=== PATIENT | male | born 1940 | race Caucasian/White ===

== ENCOUNTER 2019-01-22 11:44 | Inpatient (IN) | payer MEDICARE ==
--- NOTE | 2019-01-22 12:00 | ED ---
Shortness of Breath - HPI Summary HPI Summary: The patient is a 78 y/o M presenting to [facility] accompanied by family with a chief complaint of gradually worsening shortness of breath, cough, and chest congestion, over the last two days and new onset fever of 101F this morning. He reports three days ago, he went to [place] for a transesophageal echocardiography because he was scheduled for an ablation the next day secondary to hx of atrial fibrillation. While the test was normal, lab and chest x-ray results taken that day revealed fluid on the lungs and an elevated INR likely secondary to CHF exacerbation, so the ablation was canceled. He was given 45mg Lasix IV there, and was advised to continue taking 20mg Lasix daily. When he returned home, his symptoms continued to worsen with development of fatigue, generalized weakness, productive cough with thick brown phlegm, increased shortness of breath with pulse ox reading in the high 80s% range, chest congestion, headache, and fever. He denies any edema or chest pain. He also notes that hes been experiencing an irregular heartbeat, likely due to afib, which he has been experiencing more frequently since he had pneumonia in July 2018. He had seen a PA in his primarys office yesterday, but they were not inclined to begin a course of antibiotics yet. Currently, he rates his symptoms 6/10 in severity. 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 Former smoker, rare EtOH, no substance use. Medications reviewed ( Coumadin, Tikosyn, Metoprolol). Allergies noted. - History of Current Complaint Chief Complaint: EDGeneral Time Seen by Provider: 01/22/19 11:46 Hx Obtained From: Patient Onset/Duration: Gradual Onset, Lasting Days - two, Still Present Current Severity: Moderate Dyspnea At: Rest Aggravating Factors: Nothing - possible CHF exacerbation Alleviating Factors: Nothing Associated Signs & Symptoms: Cough (Nonproductive) - with thick, brown phlegm, Fever - 101F - Allergy/Home Medications Allergies/Adverse Reactions: Allergies Allergy/AdvReac Type Severity Reaction Status Date / Time Penicillins Allergy Rash Verified 01/22/19 11:48 Home Medications: Home Medications Furosemide TAB* [Lasix TAB*] 20 mg PO DAILY 01/22/19 [History Confirmed 01/22/19 ] Metoprolol Succinate XL TAB* [Toprol XL TAB*] 50 mg PO DAILY 01/22/19 [History Confirmed 01/22/19] Mirtazapine TAB* [Remeron TAB*] 15 mg PO BEDTIME 01/22/19 [History Confirmed 09/05] Omeprazole 40 mg PO QAM 01/22/19 [History Confirmed 01/22/19] Zolpidem Tartrate [Ambien Cr] 12.5 mg PO BEDTIME PRN 01/22/19 [History Confirmed 01/22/19] PMH/Surg Hx/FS Hx/Imm Hx Endocrine/Hematology History: Denies: Hx Diabetes, Hx Anemia Cardiovascular History: Reports: Hx Atrial Fibrillation, Hx Congestive Heart Failure, Hx Coronary Artery Disease, Hx Hypercholesterolemia, Hx Hypertension, Hx Valvular Heart Disease - valve replacement, Other Cardiovascular Problems/ Disorders - 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 Denies: Hx Angina, Hx Myocardial Infarction, Hx Pacemaker/ICD Respiratory History: Reports: Hx Asthma - A CHILD, Hx Lung Cancer, Other Respiratory Problems/Disorders - RLL lobectomy Denies: Hx Chronic Obstructive Pulmonary Disease (COPD) GI History: Reports: Hx Gall Bladder Disease, Hx Gastroesophageal Reflux Disease Denies: Hx Jaundice History: Reports: Hx Benign Prostatic Hyperplasia, Hx Kidney Stones - JULY 2011, Other Problems/Disorders - urethral stricture Denies: Hx Chronic Renal Failure, Hx Renal Disease - kidney stones Musculoskeletal History: Reports: Hx Arthritis - GENERALIZED Sensory History: Reports: Hx Cataracts, Hx Contacts or Glasses Denies: Hx Hearing Aid Opthamlomology History: Reports: Hx Cataracts, Hx Contacts or Glasses Neurological History: Reports: Hx Transient Ischemic Attacks (TIA) Denies: Hx Headaches Psychiatric History: Reports: Other Psychiatric Issues/Disorders - ETOH Denies: Hx Panic Disorder - Cancer History Cancer Type, Location and Year: PROSTATE CANCER, lung cancer Hx Radiation Therapy: Yes - Surgical History Surgical History: Yes Surgery Procedure, Year, and Place: 1997 SEED IMPLANT FOR PROSTATE,. 1997 RT LOWER LOBECTOMY,. [address] [facility] MODEL 25A [address] [employer] FOR UP TO 3T. 2009 & 2011 KIDNEY STONES X 2 [facility]. 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 Negative: Chest Pain Positive: Shortness Of Breath, Cough - productive with thick, brown phlegm, Other - chest congestion Negative: Edema Positive: Headache, Weakness - generalized All Other Systems Reviewed And Are Negative: Yes Physical Exam - Summary Physical Exam Summary: VITAL SIGNS: Reviewed. GENERAL: Patient is a well-developed and nourished elderly male who is lying comfortable in the stretcher. He seems to be fatigued. Patient is not in any acute respiratory distress. HEAD AND FACE: No signs of trauma. No ecchymosis, hematomas or skull depressions. No sinus tenderness. EYES: PERRLA, EOMI x 2, No injected conjunctiva, no nystagmus. EARS: Hearing grossly intact. Ear canals and tympanic membranes are within normal limits. MOUTH: Oropharynx within normal limits. NECK: Supple, trachea is midline, no adenopathy, no JVD, no carotid bruit, no c- spine tenderness, neck with full ROM. CHEST: Symmetric, no tenderness at palpation. LUNGS: Able to speak in full sentences, however he seems to be short of breath. Wheezing, decreased breath sounds bilaterally, crackles in the bases of the lungs. CVS: Regular rate and rhythm, S1 and S2 present, no murmurs or gallops appreciated. ABDOMEN: Soft, non-tender. No signs of distention. No rebound, no guarding, and no masses palpated. Bowel sounds are normal. EXTREMITIES: FROM in all major joints, no edema, no cyanosis or clubbing. NEURO: Alert and oriented x 3. No acute neurological deficits. Speech is normal and follows commands. SKIN: Dry and warm. Triage Information Reviewed: Yes Vital Signs On Initial Exam: Initial Vitals Temp Pulse Resp BP Pulse Ox 101.0 F 88 24 120/70 90 01/22/19 11:45 01/22/19 11:45 01/22/19 11:45 01/22/19 11:45 01/22/19 11:45 Vital Signs Reviewed: Yes Procedures - Sedation Patient Received Moderate/Deep Sedation with Procedure: No Diagnostics - Vital Signs Vital Signs Temp Pulse Resp BP Pulse Ox 01/22/19 11:45 101.0 F 88 24 120/70 90 - Laboratory Result Diagrams: 01/22/19 12:12 01/23/19 06:55 Lab Statement: Any lab studies that have been ordered have been reviewed, and results considered in the medical decision making process. - Radiology Chest X-ray Radiology Interpretation Completed By: Radiologist Summary of Radiographic Findings: Impression: Mixed radiographic pattern both with concern for mild pulmonary vascular congestion and potential inflammatory infiltrate at the RIGHT mid to lower lung zone. ED physician has reviewed this report. - EKG 1211 Cardiac Rate: NL - 86 bpm EKG Rhythm: Sinus Rhythm EKG Comparison: No Significant Change - Similar to previous taken on 09/14/18. Summary of EKG Findings: EKG at 1211 reveals NSR at 86 bpm[address] Normal axis. No ST elevations. ED physician has reviewed and interpreted this EKG. Re-Evaluation - Re-Evaluation First Eval Re-Evaluation Time: 12:55 Change: Unchanged Comment: Patient and faimly updated on findings and plan for admission. Course/Dx - Course Assessment/Plan: Patient is a 78 y/o M hx of atrial fibrillation, CHF, endocarditis, and right lower lobectomy with chief complaint of gradually worsening shortness of breath and productive cough accompanied by headache, chest congestion, fever, and irregular heart rate over the last two days following findings of fluid on the lungs and elevated INR despite normal PATY the day prior to symptoms worsening. Denies edema or chest pain. Currently taking Lasix. Blood work without any significant abnormality except for slight anemia, glucose 110, magnesium 1.8, CRP 235, and BNP 1084. EKG impression: Normal sinus rhythm at [address] elevation. Chest x-ray IMPRESSION: Mixed radiographic pattern both with concern for mild pulmonary vascular congestion and potential inflammatory infiltrate at the RIGHT mid to lower lung zone. In the ED course, the patient was given Lasix IV for CHF exacerbation. At this point, I discussed my physical exam and findings with Dr. Guy who accepted the patient for admission. Dr. Guy ordered Rocephin IV for the pneumonia. - Diagnoses Provider Diagnoses: CHF exacerbation, Pneumonia - Physician Notifications Discussed Care of Patient With: Sheyla Guy - hospitalist Time Discussed With Above Provider: 12:57 Instructed by Provider To: Admit As Observation - I discussed the patient's case with Dr. Guy, and she accepts the patient for admission. Discharge ED - Sign-Out/Discharge Documenting (check all that apply): Patient Departure - Patient accepted for admission. - Discharge Plan Condition: Stable Disposition: ADMITTED TO [facility] - Billing Disposition and Condition Condition: STABLE Disposition: Admitted to [facility] - Attestation Statements Document Initiated by Chidie: Yes Documenting Scribe: Lotus Shelby Provider For Whom Nitin is Documenting (Include Credential): Dr. Roger Church MD Scribe Attestation: Lotus Gastelum scribed for Dr. Roger Church MD on 01/23/19 at 0903. Scribe Documentation Reviewed: Yes Provider Attestation: The documentation as recorded by the Lotus luciano accurately reflects the service I personally performed and the decisions made by me, Dr. Roger Church MD Status of Scribe Document: Viewed
[2019-01-22 12:24] LABS: ABS Lymphocytes 0.7 10^3/ul (1.0-4.8); ABS Neutrophils 7.5 10^3/ul (1.5-7.7); Hematocrit 34 % (42-52); Hemoglobin 11.9 g/dL (14.0-18.0); Lymphocyte % 7.9 %; Mean Corpuscular HGB Conc 35 g/dL (31-36); Mean Corpuscular Hemoglobin 33 pg (27-31); Mean Corpuscular Volume 96 fL (80-94); Mean Platelet Volume 9.1 fL (7.4-10.4); Platelet Count 153 10^3/uL (150-450); Red Blood Count 3.56 10^6 /uL (4.18-5.48); Red Cell Distribution Width 15 % (10-15); White Blood Count 9.3 10^3/uL (3.5-10.8)
[2019-01-22 12:42] LABS: Albumin 3.8 g/dL (3.2-5.2); Albumin/Globulin Ratio 1.1 (1-3); BUN/Creatinine Ratio 31.9 (8-20); Calcium 9.6 mg/dL (8.6-10.3); EGFR African American 128.4 (>60); EGFR Non-African American 106.1 (>60); Globulin 3.4 g/dL (2-4); Magnesium 1.8 mg/dL (1.9-2.7); Potassium 4.3 mmol/L (3.5-5.0); Total Protein 7.2 g/dL (6.4-8.9)
[2019-01-22 12:44] LABS: Troponin I 0.02 ng/mL (<0.04)
[2019-01-22] MEDS ORDERED: Furosemide IV* 10 MG/ML 2 ML VIAL (20 MG) IV ONE (12:54)
[2019-01-22 12:56] LABS: TSH (Thyroid Stimulating Horm) 0.64 mcIU/mL (0.34-5.60)
[2019-01-22 14:05] LABS: INR 4.87 (0.82-1.09)
[2019-01-22 14:09] LABS: C Reactive Protein 235.14 mg/L (<8.01)
[2019-01-22] MEDS: Azithromycin 500 mg/250 ml NS 500 MG/250 ML BAG IVPB SCH (14:19)
[2019-01-22] MEDS ORDERED: Metoprolol Tartrate IV* 1 MG/ML 5 ML VIAL IV ONE (14:47)
[2019-01-22] MEDS: HYDROcodone/ACETAMIN 5-325 MG* 1 TAB PO PRN (16:21)
[2019-01-22] MEDS: cefTRIAXone(*) 1 GM in NS 0.9% 50 ML* 50 ML IVPB SCH (16:22)
[2019-01-22 17:30] LABS: Urine Appearance Cloudy; Urine Bacteria Absent (Absent); Urine Bilirubin Negative (Negative); Urine Blood 2+ (Negative); Urine Color Yellow; Urine Glucose Negative (Negative); Urine Ketones Negative (Negative); Urine Nitrite Negative (Negative); Urine Protein Negative (Negative); Urine Red Blood Cell 3+(>10/hpf) (Absent); Urine Specific Gravity 1.016 (1.010-1.030); Urine Squamous Epithelial Cell Present (Absent); Urine Urobilinogen Negative (Negative); Urine White Blood Cell 3+(>20/hpf) (Absent)
--- NOTE | 2019-01-22 18:00 | HP ---
CC: Dr. Cortez; Dr. Tsai * HISTORY AND PHYSICAL: DATE OF ADMISSION: 01/22/19 PRIMARY CARE PROVIDER: Dr. Cortez. FACTORY FOCUS TECHNICIAN: Dr. Tsai. CHIEF COMPLAINT: Shortness of breath. HISTORY OF PRESENT ILLNESS: Mr. Santos is a 78-year-old male who states that on 01/17/19 in the afternoon he started to develop what he described as a severe cold. He felt short of breath. Thursday, he was feeling somewhat better, but still not well and drove to [place] for a planned transesophageal echocardiogram on Thursday. Thursday a.m., he underwent transesophageal echocardiogram in preparation for an AFib ablation on . morning, he developed severe cough. He had much more significant shortness of breath. His AFib ablation was canceled. Chest x-ray was obtained and he was diagnosed with pulmonary edema. He was given Lasix 45 mg IV x1 and started on Lasix 20 mg daily. afternoon, he drove home. He continued to feel unwell and today, 01/22/19 he noted that his shortness of breath and cough are worse. He states that when he coughs he frequently is bringing up thick brown sputum. He has not had any fever at home, but did have a fever of 101 in the emergency room. He does note that he had a house guest over the last weekend and the night prior to the house guest leaving he was developing a cold. He does not note any lower extremity edema. PAST MEDICAL HISTORY: 1. Atrial fibrillation. 2. Congestive heart failure. 3. Coronary artery disease. 4. History of endocarditis, approximately 5 years ago. 5. Depression. 6. Hypertension. 7. Asthma. 8. History of prostate cancer, status post radiation therapy with seeds. 9. Frequent urinary tract infections secondary to urethral strictures requiring self-catheterization once daily to prevent stricture from tightening. PAST SURGICAL HISTORY: 1. Right lower lobectomy for lung cancer. 2. Dilating cystoscopies. 3. Mechanical aortic valve replacement. 4. Bilateral cataract extractions. 5. Kidney stone surgery. MEDICATIONS: 1. Lasix 20 mg p.o. daily. 2. Metoprolol XL 50 mg p.o. q.a.m., 37.5 mg p.o. q.p.m. 3. [place] 5/325 one tab p.o. q.6 hours p.r.n. pain. 4. Flonase 1 squirt both nostrils daily. 5. Omeprazole 40 mg p.o. daily. 6. Magnesium oxide 500 mg p.o. b.i.d. 7. Potassium chloride 20 mEq p.o. b.i.d. 8. Multivitamin 1 tab p.o. daily. 9. Tikosyn 250 mcg p.o. b.i.d. 10. Coumadin 2 mg p.o. q.h.s. 11. Remeron 15 mg p.o. q.h.s. 12. Ambien CR 12.5 mg p.o. q.h.s. p.r.n. insomnia. ALLERGIES: PENICILLIN, which causes rash. FAMILY HISTORY: Mom at the age of 85, she had diabetes and heart failure. Dad at the age of 71, he had emphysema. SOCIAL HISTORY: The patient is a former smoker, he quit at the age of 32, he smoked less than 1 pack per day for approximately 10 years. He does not drink alcohol. He works as a [employer]. He is . He has 3 children. His Madie is his healthcare proxy. REVIEW OF SYSTEMS: A complete 11-system review of systems is obtained, pertinent positives and negative are as per HPI. In addition, the patient states his appetite has been poor over the last several days. He has had pain in his chest only with coughing. He has had loose stools in the last couple of days. The rest of the 11-system review of systems is negative. PHYSICAL EXAMINATION GENERAL: The patient is a well-developed elderly male, sitting up in the stretcher, in no acute distress. VITAL SIGNS: Blood pressure 128/74, pulse 88, respirations 30, temp 101 O2 sat 92% on room air. HEENT: Pupils are equal. There is evidence of prior cataract extraction. Extraocular muscles are intact. Oropharynx is clear. Oral mucosa is moist. There is no submandibular, cervical or supraclavicular adenopathy. Thyroid is not enlarged. No thyroid nodules noted. PULMONARY: Lungs are clear to auscultation bilaterally. CARDIAC: Normal S1, S2. Regular rate and rhythm. There is no lower extremity edema. ABDOMEN: Bowel sounds are present. Abdomen is soft, nontender, nondistended. MUSCULOSKELETAL: There is no cyanosis or clubbing of the digits. There is full active range of motion of all 4 extremities. NEURO: Cranial nerves II through XII are grossly intact. Sensation is intact to light touch throughout. Strength is 5/5 and symmetric to both upper and lower extremities bilaterally. PSYCH: The patient is alert. He is oriented x3. Affect appears appropriate. SKIN: Warm and dry. There are no rashes. DIAGNOSTIC STUDIES/LAB DATA: WBC 9.3, hemoglobin 11.9, hematocrit 34, platelets 153. INR 4.87. Sodium 137, potassium 4.3, chloride 101, CO2 of 28, BUN 23, creatinine 0.72, glucose 110, lactic acid 1.6, calcium 9.6, magnesium 1.8. Bilirubin 1.0, AST 32, ALT 23, alk phos 59. CPK 71, CK-MB 4. Troponin 0.02. CRP 235.14. BNP 1084. Albumin 3.8. TSH 0.64. EKG reveals normal sinus rhythm without any acute ST-T wave abnormalities. Chest x-ray reveals mixed radiographic pattern, both with concern for mild pulmonary vascular congestion and potential inflammatory infiltrate at the right mid to lower lung zone. ASSESSMENT AND PLAN: Mr. Santos is a 78-year-old male with a history of atrial fibrillation, congestive heart failure, coronary artery disease, hypertension, past right lower lobectomy for lung cancer, who presents to the emergency room with complaints of shortness of breath and is found to have likely a right- sided pneumonia. 1. Community-acquired pneumonia involving the right mid lung. At this point, my suspicion based on the patient's symptoms and history of fatigue, anorexia, cough, sputum production, and now fever is that he has a community-acquired pneumonia. The patient will be started on ceftriaxone and azithromycin. Sputum culture will be obtained as well as urine for Strep pneumoniae and Legionella antigen. I am not going to administer any IV fluid at this point given the patient's elevated BNP and possible mild pulmonary vascular congestion seen on chest x-ray. The patient will not receive any further diuretic. He did receive a dose of Lasix 20 mg IV x1 in the ER. The patient will also continue on Tikosyn 250 mcg p.o. b.i.d. 2. Atrial fibrillation. In the time that I spent in the ER with the patient, he went from sinus rhythm to atrial fibrillation. He feels more uncomfortable in atrial fibrillation. Metoprolol 5 mg IV x1 will be administered. He will otherwise continue on metoprolol succinate 50 mg daily and 37.5 mg at bedtime. His INR is supratherapeutic at 4.87 and likely will go higher with the administration of azithromycin. Because of this, I am not going to administer any Coumadin tonight. Followup INR has been ordered for tomorrow. 3. Hypertension. BP is under good control. Continue metoprolol succinate at current dose. 4. History of urethral strictures and frequent urinary tract infections. The patient will continue with straight catheterization once daily. 5. Depression. Continue Remeron 15 mg at bedtime. 6. Insomnia. Continue Ambien as needed for sleep. 7. DVT prophylaxis. According to the Adult Thrombosis Prophylaxis Risk Factor Assessment Guide, the patient has a total risk factor score of 5 making him the highest risk. He already has a supratherapeutic INR and this will be his DVT prophylaxis, his Coumadin will be restarted when his INR has trended down. 8. Code status is full. TIME SPENT: 65 minutes was spent admitting this patient. [id number]/[facility] #: [id number] FEDE
[2019-01-22] MEDS: Metoprolol Succinate XL TAB* 25 MG PO SCH (18:39)
[2019-01-22] MEDS: Zolpidem TAB* 10 MG PO PRN ×2 (21:41→23:10)
[2019-01-22] MEDS: Dofetilide CAP* 250 MCG PO SCH (21:41)
[2019-01-22] MEDS: Magnesium Oxide TAB* 400 MG PO SCH (21:42)
[2019-01-22] MEDS: Mirtazapine TAB* 15 MG PO SCH (21:42)
[2019-01-22] MEDS: Potassium Chlor TAB* 20 MEQ TAB.ER PO SCH (21:42)
[2019-01-23 07:20] LABS: BUN/Creatinine Ratio 36.2 (8-20); Calcium 8.9 mg/dL (8.6-10.3); EGFR African American 164.8 (>60); EGFR Non-African American 136.2 (>60)
[2019-01-23 07:25] LABS: INR 5.95 (0.82-1.09)
[2019-01-23] MEDS: Magnesium Oxide TAB* 400 MG PO SCH ×2 (09:46→21:20)
[2019-01-23] MEDS: Pantoprazole TAB * 40 MG TAB PO SCH (09:46)
[2019-01-23] MEDS: Dofetilide CAP* 250 MCG PO SCH ×2 (09:46→21:21)
[2019-01-23] MEDS: Furosemide TAB* 20 MG PO SCH (09:46)
[2019-01-23] MEDS: Metoprolol Succinate XL TAB* 50 MG PO SCH (09:46)
[2019-01-23] MEDS: Potassium Chlor TAB* 20 MEQ TAB.ER PO SCH ×2 (09:46→21:21)
[2019-01-23] MEDS: Vitamin THERAPEUTIC TAB PO SCH (09:46)
[2019-01-23] MEDS: cefTRIAXone(*) 1 GM in NS 0.9% 50 ML* 50 ML IVPB SCH (15:11)
[2019-01-23] MEDS: Azithromycin 500 mg/250 ml NS 500 MG/250 ML BAG IVPB SCH (16:01)
[2019-01-23] MEDS: Metoprolol Succinate XL TAB* 25 MG PO SCH (17:32)
[2019-01-23] MEDS: Calcium Carbonate CHEW TAB* 500 MG (TUMS) PO PRN (21:20)
[2019-01-23] MEDS: Mirtazapine TAB* 15 MG PO SCH (21:21)
[2019-01-24] MEDS ORDERED: Metoprolol Tartrate TAB* 25 MG PO ONE (00:37)
[2019-01-24] MEDS: Zolpidem TAB* 10 MG PO PRN ×2 (01:03→21:10)
[2019-01-24] MEDS: HYDROcodone/ACETAMIN 5-325 MG* 1 TAB PO PRN ×2 (01:07→19:17)
[2019-01-24 07:06] LABS: Hematocrit 31 % (42-52); Hemoglobin 10.7 g/dL (14.0-18.0); Mean Corpuscular HGB Conc 34 g/dL (31-36); Mean Corpuscular Hemoglobin 33 pg (27-31); Mean Corpuscular Volume 96 fL (80-94); Mean Platelet Volume 9.1 fL (7.4-10.4); Platelet Count 171 10^3/uL (150-450); Red Blood Count 3.27 10^6 /uL (4.18-5.48); Red Cell Distribution Width 15 % (10-15); White Blood Count 9.8 10^3/uL (3.5-10.8)
[2019-01-24 07:21] LABS: Albumin/Globulin Ratio 1.1 (1-3); BUN/Creatinine Ratio 33.3 (8-20); C Reactive Protein 160.45 mg/L (<8.01); Calcium 9.2 mg/dL (8.6-10.3); EGFR African American 149.8 (>60); EGFR Non-African American 123.8 (>60); Globulin 2.7 g/dL (2-4); Magnesium 1.6 mg/dL (1.9-2.7); Phosphorus 2.5 mg/dL (2.5-5.0); Potassium 4.1 mmol/L (3.5-5.0); Total Bilirubin 0.6 mg/dL (0.2-1.0); Total Protein 5.7 g/dL (6.4-8.9)
[2019-01-24 07:27] LABS: INR 5.21 (0.82-1.09)
[2019-01-24] MEDS: Furosemide TAB* 20 MG PO SCH (10:25)
[2019-01-24] MEDS: Magnesium Oxide TAB* 400 MG PO SCH ×2 (10:25→20:17)
[2019-01-24] MEDS: Pantoprazole TAB * 40 MG TAB PO SCH (10:25)
[2019-01-24] MEDS: Metoprolol Succinate XL TAB* 50 MG PO SCH ×2 (10:25→17:31)
[2019-01-24] MEDS: Vitamin THERAPEUTIC TAB PO SCH (10:25)
[2019-01-24] MEDS: Dofetilide CAP* 250 MCG PO SCH ×2 (10:25→20:17)
[2019-01-24] MEDS: Potassium Chlor TAB* 20 MEQ TAB.ER PO SCH ×2 (10:25→20:17)
[2019-01-24] MEDS ORDERED: Magnesium Sulfate 2 GM IV* 2 GM/50 ML BAG IVPB ONE (10:31)
[2019-01-24 11:38] LABS: BUN/Creatinine Ratio 29.4 (8-20); Calcium 9.3 mg/dL (8.6-10.3); EGFR African American 137.2 (>60); EGFR Non-African American 113.4 (>60)
[2019-01-24] MEDS: Aztreonam (*) 1 GM in NS 0.9% 50 ML* 50 ML IVPB SCH ×2 (12:38→20:17)
--- NOTE | 2019-01-24 12:53 | CONS ---
CONSULTATION REPORT: DATE OF CONSULT: 01/24/19 REQUESTING PHYSICIAN: Dr. Janey Pinzon. CONSULTING SERVICE: Infectious Disease. REASON FOR CONSULTATION: Pneumonia. IMPRESSION: 1. Right middle lobe infiltrate on chest x-ray with dyspnea, fever, cough productive of purulent sputum, sputum culture growing Haemophilus influenzae. It is not a beta lactamase sales producer. His respiratory status complicated by congestive heart failure as well. 2. Right middle lobe infiltrate seen on x-ray of July 2018 as well. 3. Diffuse erythematous blanching rash on his trunk and extremities likely reaction to cephalosporin as he does also have a PENICILLIN allergy and there is occasional cross reaction. He is asymptomatic. 4. History of mechanical aortic valve endocarditis in 2013. 5. Atrial fibrillation. RECOMMENDATIONS: 1. Aztreonam 1 g IV every 8 hours to cover haemophilus. We will continue azithromycin another 2 days for atypical coverage and for possible improved morbidity and community-acquired pneumonia. 2. I discussed with him that after removing the offending agent, his rash will persist for a few more days. Thankfully, it is not itchy at this point and it does not bother him. If it does, we can add antihistamines. 3. Repeat chest imaging in a month. HISTORY OF PRESENT ILLNESS: This is a 78-year-old man who at the end of last week developed dyspnea, cough productive of purulent sputum, low-grade fevers and chills that was in the setting of a workup in [place] for an ablation procedure for atrial fibrillation that was scrapped when his symptoms developed. He was initially treated with Lasix and then because his symptoms persisted he came to the hospital. On the , he was afebrile to 38.3 degrees , required supplemental oxygen. He has C-reactive protein of 235, which today was down to 160. His sputum culture has since come back positive of Haemophilus influenzae. Blood cultures are negative. Pneumococcal antigens negative. His breathing feels better today. He feels like he has been able to be up and around the room with less dyspnea. His cough is about the same. PAST MEDICAL HISTORY: 1. Status post mechanical aortic valve replacement complicated by infectious endocarditis in 2013. 2. Atrial fibrillation. 3. Coronary artery disease. 4. Depression. 5. Hypertension. 6. Asthma. 7. Prostate cancer, treated with radiation therapy, brachytherapy. 8. Urinary tract infection in the setting of urethral stricture and self catheterization. 9. Status post right lower lobectomy for lung cancer. 10. Status post multiple cystoscopy to dilate urethral stricture. 11. Bilateral cataract surgery. MEDICATIONS: 1. Azithromycin 500 mg a day. 2. Calcium carbonate. 3. Dofetilide. 4. Lasix. 5. Magnesium oxide. 6. Metoprolol. 7. Mirtazapine. 8. Pantoprazole. 9. Potassium chloride. 10. Ambien at bedtime. ALLERGIES: PENICILLIN caused rash. FAMILY HISTORY: No recurrent infections. SOCIAL HISTORY: He lives in [place] with his . He is an accountant supervisor. Nonsmoker. REVIEW OF SYSTEMS: All negative except as noted above to a 14-point review. PHYSICAL EXAM: Vital Signs: Temperature is 36.8, heart rate 115, respiratory rate 16, blood pressure 102/54, oxygen saturation 95% on room air. In general, he is awake, not in distress. Neurologic: He is oriented x3. Follows all commands. HEENT: There is no conjunctival hemorrhage. Oropharynx without lesions. Neck is supple without mass. Heart is irregularly irregular and tachycardic without murmurs. Lungs are decreased breath sounds at the base with rales on the left and expiratory wheeze more prominent on the right. Abdomen: Soft, nontender, nondistended. There are bowel sounds present. Skin : There is diffuse blanching erythematous patches on his trunk, arm and forearms and on the bilateral upper legs, there is diffuse nonblanching erythematous macules. Musculoskeletal: There is no spine tenderness to palpation or joint synovitis. DIAGNOSTIC STUDIES/LAB DATA: White blood cell count 9.8, hemoglobin 10, platelets 171. Creatinine 0.6. CRP 160. Please see impressions and recommendations outlined above. Thanks for asking me to see Mr. Santos in consultation. [id number]/[facility] #: [id number] FEDE
[2019-01-24] MEDS: Azithromycin 500 mg/250 ml NS 500 MG/250 ML BAG IVPB SCH (15:44)
[2019-01-24] MEDS ORDERED: Metoprolol Succinate XL TAB* 25 MG PO SCH (18:00)
[2019-01-24] MEDS: Mirtazapine TAB* 15 MG PO SCH (20:17)
[2019-01-24] MEDS: Calcium Carbonate CHEW TAB* 500 MG (TUMS) PO PRN (21:10)
[2019-01-25] MEDS: Aztreonam (*) 1 GM in NS 0.9% 50 ML* 50 ML IVPB SCH ×3 (04:04→20:00)
[2019-01-25 06:11] LABS: ABS Eosinophils 0.7 10^3/ul (0-0.6); ABS Lymphocytes 1.3 10^3/ul (1.0-4.8); ABS Monocytes 1.1 10^3/ul (0-0.8); ABS Neutrophils 8.3 10^3/ul (1.5-7.7); Eosinophil % 6.2 %; Hematocrit 34 % (42-52); Hemoglobin 11.4 g/dL (14.0-18.0); Lymphocyte % 11.5 %; Mean Corpuscular HGB Conc 34 g/dL (31-36); Mean Corpuscular Hemoglobin 32 pg (27-31); Mean Corpuscular Volume 96 fL (80-94); Platelet Count 194 10^3/uL (150-450); Red Blood Count 3.53 10^6 /uL (4.18-5.48); Red Cell Distribution Width 15 % (10-15); White Blood Count 11.4 10^3/uL (3.5-10.8)
[2019-01-25 06:15] LABS: INR 3.92 (0.82-1.09)
[2019-01-25 06:25] LABS: Magnesium 1.8 mg/dL (1.9-2.7)
[2019-01-25 06:31] LABS: C Reactive Protein 130.14 mg/L (<8.01)
--- NOTE | 2019-01-25 09:37 | PN ---
Progress Note - Progress Note Date of Service: 01/25/19 SOAP: Subjective: CC: Pneumonia HPI: Mr. Santos is a 78 yo male with PMH significant for AV replacement, Afib, CAD, HTN, asthma, prostate cancer, and lung cancer. Kizzy fever, chills, nausea , vomiting, or urinary symptoms. He continues to have an intermittent productive cough. He reports diarrhea with 4-5 loose stools daily for about 2 days, he states that this AM his stools are starting to "firm up". Objective: Vital Signs - 8 hr 01/25/19 01/25/19 04:14 06:38 Temperature 97.9 F 98.5 F Pulse Rate 112 107 Respiratory 20 19 Rate Blood Pressure 112/66 119/57 (mmHg) O2 Sat by Pulse 94 93 Oximetry Physical Exam: General: NAD, sitting up in bed Neurological: Alert and Oriented x4 HEENT: Moist MM, no thrush Cardiovascular: Heart rate, no murmur Respiratory: Lung sounds clear on the left and crackles in the right lower lobe Abdominal: Bowel sounds present; ABD soft, non tender and non distended MSK: No tenderness with palpation of the neck, back or spine Skin: Erythematous rash to the thighs, chest and back, blanchable Laboratory Results - last 24 hr 01/24/19 01/25/19 01/25/19 10:48 05:46 05:52 WBC 11.4 H RBC 3.53 L Hgb 11.4 L Hct 34 L MCV 96 H MCH 32 H MCHC 34 RDW 15 Plt Count 194 MPV 9.0 Neut % (Auto) 72.6 Lymph % (Auto) 11.5 [place] % (Auto) 9.4 Eos % (Auto) 6.2 Baso % (Auto) 0.3 Absolute Neuts (auto) 8.3 H Absolute Lymphs (auto) 1.3 Absolute Monos (auto) 1.1 H Absolute Eos (auto) 0.7 H Absolute Basos (auto) 0.0 Absolute Nucleated RBC 0.0 Nucleated RBC % 0.0 INR (Anticoag Therapy) Sodium 137 Potassium 4.0 Chloride 102 Carbon Dioxide 31 Anion Gap 4 BUN 20 Creatinine 0.68 Est GFR ( Amer) 137.2 Est GFR (Non-Af Amer) 113.4 BUN/Creatinine Ratio 29.4 H Glucose 135 H Calcium 9.3 Magnesium 1.8 L C-Reactive Protein 130.14 H Microbiology 01/22/19 12:12 Aerobic Blood Culture - Preliminary Blood Venous No Growth Day 2 Anaerobic Blood Culture - Preliminary No Growth Day 2 01/22/19 12:09 Aerobic Blood Culture - Preliminary Blood Venous No Growth Day 2 Anaerobic Blood Culture - Preliminary No Growth Day 2 01/22/19 17:11 Gram Stain - Final Sputum Sputum Culture - Final Haemophilus Influenzae Normal Porsha 01/22/19 17:11 Urine Culture - Final Urine Enterococcus Faecalis 01/22/19 17:11 Legionella Urinary Antigen - Final Urine Negative Legionella Antigen Streptococcus pneumoniae Ag Screen - Final Negative S. pneumo Antigen Assessment: 1. Haemophilus influenzae community acquired PNA. Sputum with Haemophilus influenzae. Urine antigens negative for Legionella and S. pneumo. Afebrile, has been fever free for > 48 hours. Continues to have mild leukocytosis. Blood cultures with no growth, day 2. 2. Diffuse rash. Suspect secondary to drug reaction, most likely cephalosporin in the setting of a PCN allergy. 3. PCN allergy. 4. Asymptomatic bacteruria. Denies urinary symptoms. Urine culture on admission with Enterococcus Faecalis. Plan: Continue Aztreonam 1gm IV every 8 hours to cover Haemophilus, and Azithromycin for 1 more day to cover atypicals. Will need to have a repeat chest xray in one month.
[2019-01-25] MEDS: Vitamin THERAPEUTIC TAB PO SCH (10:18)
[2019-01-25] MEDS: Metoprolol Succinate XL TAB* 50 MG PO SCH ×2 (10:18→17:58)
[2019-01-25] MEDS: Potassium Chlor TAB* 20 MEQ TAB.ER PO SCH ×2 (10:18→20:10)
[2019-01-25] MEDS: Furosemide TAB* 20 MG PO SCH (10:19)
[2019-01-25] MEDS: Dofetilide CAP* 250 MCG PO SCH ×2 (10:19→20:10)
[2019-01-25] MEDS: Magnesium Oxide TAB* 400 MG PO SCH ×2 (10:19→20:10)
[2019-01-25] MEDS: Pantoprazole TAB * 40 MG TAB PO SCH (10:19)
[2019-01-25 13:19] LABS: Urine Appearance Clear; Urine Bacteria Absent (Absent); Urine Bilirubin Negative (Negative); Urine Blood 2+ (Negative); Urine Color Yellow; Urine Glucose Negative (Negative); Urine Ketones Negative (Negative); Urine Nitrite Negative (Negative); Urine Protein Negative (Negative); Urine Red Blood Cell 1+(3-5/hpf) (Absent); Urine Specific Gravity 1.008 (1.010-1.030); Urine Squamous Epithelial Cell Present (Absent); Urine Urobilinogen Negative (Negative); Urine White Blood Cell Trace(0-5/hpf) (Absent)
[2019-01-25] MEDS: Azithromycin 500 mg/250 ml NS 500 MG/250 ML BAG IVPB SCH (15:55)
[2019-01-25] MEDS ORDERED: Digoxin TAB* 0.25 MG PO ONE ×2 (17:21→23:00)
--- NOTE | 2019-01-25 19:16 | CONS ---
CC: Dr. Janey Pinzon; Dr. Pamela Tsai; Dr. Rico Bazzi, Electrophysiology, [facility], [place], [place] * CARDIOLOGY CONSULTATION: DATE OF CONSULT: 01/25/19 INDICATION FOR CONSULTATION: Atrial fibrillation. HISTORY OF PRESENT ILLNESS: The patient is a 78-year-old male with a history of mechanical aortic valve replacement and the past history of atrial fibrillation. The patient did have an ablation for his atrial fibrillation back in 2014. In the last 5 months, the patient has been having increasing episodes of atrial fibrillation to the point where he is unable to maintain normal sinus rhythm. The patient was on Tikosyn for quite some time to try to control the atrial arrhythmia. Recently, the patient was up in [place] for a transesophageal echocardiogram and then possible ablation. The patient was scheduled for last and was cancelled both because of his pneumonia and because of decreased confidence that a repeat ablation would help in the control of his atrial fibrillation. There was some discussion by Dr. Bazzi about doing an AV node ablation and pacemaker implantation. The patient was admitted to the hospital on 01/22/19 for pneumonia. He was treated with IV antibiotics. He was seen today by Dr. Janey Pinzon, his Internal Medicine physician, and noted that his heart rate was ranging about 114 to 120 beats per minute. She consulted Cardiology for control of his atrial fibrillation rate. In speaking with the patient, he himself is aware that he is in atrial fibrillation, aware that he is more fatigued in atrial fibrillation. He denies any chest pain. He denies any lightheadedness, dizziness, or syncope. The patient is on beta-blockers for control of his atrial fibrillation rate. His ability to control his heart rate with just beta-blockers is limited because of his hypotension. PAST MEDICAL HISTORY: Significant for aortic valve replacement, paroxysmal atrial fibrillation, gastroesophageal reflux disease. PAST SURGICAL HISTORY: Mechanical aortic valve replacement; AFib ablation procedure in 2014; endocarditis in 2013, treated with medications. Echocardiogram on 09/11/18 showed normal LV size and systolic function, severe left atrial enlargement, mild mitral regurgitation, normal function of mechanical aortic valve, mild to moderate pulmonary hypertension. OUTPATIENT MEDICATIONS: 1. Metoprolol succinate 25 mg twice a day. 2. Coumadin as directed. 3. Multivitamin a day. 4. Magnesium 500 mg twice a day. 5. Lansoprazole 30 mg a day. 6. Ambien 5 mg at bedtime. 7. Flonase inhaler. ALLERGIES: To PENICILLIN. PHYSICAL EXAM: Height is 5 feet 11 inches, weight 202 pounds, heart rate 107, blood pressure 110/65, respiratory rate is 18, oxygen saturation 95% on room air , temperature 98.1. Sclerae anicteric. Oropharynx is pink without erythema. Carotids are 2+ without bruits. JVD is normal. Thyroid is normal. Cardiac Exam: S1, mechanical S2 with a 1/6 systolic ejection murmur, no diastolic murmur. PMI is normal. Lungs are clear to auscultation. There is minimal rhonchi. There are no rales. Abdomen is soft, nontender, nondistended with normoactive bowel sounds. Extremities show 1+ edema. He has 2+ pulses throughout. The patient is awake, alert, and oriented. He moves all 4 extremities equally. DIAGNOSTIC STUDIES/LAB DATA: Chemistries within normal limits. BUN 20, creatinine 0.7. TSH is normal at 0.64. CRP is elevated at 235, BNP is elevated at 1084. AST and ALT are normal. CBC within normal limits. EKG shows atrial fibrillation with a heart rate of 110 beats per minute. IMPRESSION: This 78-year-old gentleman with a history of aortic valve replacement, history of atrial fibrillation, who likely is now in chronic atrial fibrillation. Despite his evaluation with Dr. Bazzi and Tikosyn therapy, the patient is not likely to maintain normal sinus rhythm. The decision at this point is to do rate control and if that is unsuccessful to have him undergo pacemaker implantation with AV node ablation. The patient's medications are appropriate. He is on metoprolol succinate 75 mg twice a day and his blood pressure is slightly low despite his heart rate of a 112. PLAN: For now my recommendation is to start digoxin. The patient will do on a slow oral loading of digoxin. There is some interaction between digoxin and azithromycin which he is on for his antibiotics. He will be given a low dose of digoxin and watch its clinical effect. This was discussed with Dr. Pinzon. The patient will follow up with Dr. Tsai as an outpatient. [id number]/[facility] #: [id number] [facility]
[2019-01-25] MEDS: Mirtazapine TAB* 15 MG PO SCH (20:11)
[2019-01-25] MEDS: HYDROcodone/ACETAMIN 5-325 MG* 1 TAB PO PRN (20:11)
[2019-01-25] MEDS: Zolpidem TAB* 10 MG PO PRN (22:03)
[2019-01-26] MEDS: Aztreonam (*) 1 GM in NS 0.9% 50 ML* 50 ML IVPB SCH ×3 (04:16→20:24)
[2019-01-26] MEDS ORDERED: Digoxin TAB* 0.25 MG PO ONE (07:00)
[2019-01-26 07:01] LABS: INR 3.65 (0.82-1.09)
[2019-01-26 07:07] LABS: C Reactive Protein 103.43 mg/L (<8.01); Calcium 9.7 mg/dL (8.6-10.3); EGFR African American 132.7 (>60); EGFR Non-African American 109.6 (>60); Potassium 4.2 mmol/L (3.5-5.0)
[2019-01-26] MEDS: Dofetilide CAP* 250 MCG PO SCH (09:42)
[2019-01-26] MEDS: Magnesium Oxide TAB* 400 MG PO SCH ×2 (09:42→20:25)
[2019-01-26] MEDS: Pantoprazole TAB * 40 MG TAB PO SCH (09:43)
[2019-01-26] MEDS: Vitamin THERAPEUTIC TAB PO SCH (09:43)
[2019-01-26] MEDS: Furosemide TAB* 20 MG PO SCH (09:44)
[2019-01-26] MEDS: Potassium Chlor TAB* 20 MEQ TAB.ER PO SCH ×2 (09:45→20:25)
[2019-01-26] MEDS: Metoprolol Succinate XL TAB* 50 MG PO SCH ×2 (09:46→17:01)
[2019-01-26] MEDS ORDERED: Warfarin TAB(*) 2 MG PO NR (17:00)
[2019-01-26] MEDS: HYDROcodone/ACETAMIN 5-325 MG* 1 TAB PO PRN (20:25)
[2019-01-26] MEDS: Mirtazapine TAB* 15 MG PO SCH (20:26)
[2019-01-27] MEDS: Aztreonam (*) 1 GM in NS 0.9% 50 ML* 50 ML IVPB SCH ×3 (03:37→20:23)
[2019-01-27 06:42] LABS: INR 3.17 (0.82-1.09)
--- NOTE | 2019-01-27 09:07 | PN ---
Progress Note - Progress Note Date of Service: 01/27/19 SOAP: Subjective: CC: cough HPI: 78 year old man with fever and productive cough admitted and started on antibiotics, developed rash on his trunk which is fading he thinks. His breathing is better, has been doing some laps in the halls and did not feel more short of breath. Some cough which has been productive. Objective: Vital Signs Temp 36.6 C 01/27/19 02:02 Pulse 99 01/27/19 02:02 Resp 20 01/27/19 02:02 BP 116/73 01/27/19 02:02 Pulse Ox 95 01/27/19 02:02 Intake & Output 01/26/19 01/27/19 01/27/19 18:59 06:59 18:59 Intake Total 1330 160 Balance 1330 160 Weight 205 lb 1.6 oz Intake: IV Fluids 250 30 ABX - AZTREONAM 250 NS (0.9%) 0 30 IVPB 130 ABX - AZTREONAM 130 Oral 1080 0 Other: Date of Last Bowel 01/26/19 Movement # Bowel Movements 1 # Voids 1 6 Gen:awake, no distress HEENT: no thrush Heart:irregular, no murmur Lungs:Decr BS bilateral bases Abd:+BS NTND soft Skin: faint blanching erythema on trunk Laboratory Results - last 24 hr 01/27/19 06:17 INR (Anticoag Therapy) 3.17 H Assessment: 1. Community acquired pneumonia, improving, due to Haemophilus 2. Drug rash, probably due to ceftriaxone, improving 3. s/p AVR 4. PCN, cephalosproin allergy 5. abnormal CXR ?infiltrate and or chronic changes compared to August 2018 Plan: 1. continue aztreonam while here (abx day 5/7), then levofloxacin 500 mg daily to finish course 2. Recheck Chest imaging 3 weeks
[2019-01-27] MEDS: Metoprolol Succinate XL TAB* 50 MG PO SCH ×3 (10:16→20:31)
[2019-01-27] MEDS: Potassium Chlor TAB* 20 MEQ TAB.ER PO SCH ×2 (10:16→20:25)
[2019-01-27] MEDS: Magnesium Oxide TAB* 400 MG PO SCH ×2 (10:16→20:25)
[2019-01-27] MEDS: Vitamin THERAPEUTIC TAB PO SCH (10:16)
[2019-01-27] MEDS: Pantoprazole TAB * 40 MG TAB PO SCH (10:17)
[2019-01-27] MEDS: Furosemide TAB* 20 MG PO SCH (10:17)
[2019-01-27 12:19] LABS: Calcium 9.4 mg/dL (8.6-10.3); EGFR African American 144.5 (>60); EGFR Non-African American 119.4 (>60); Potassium 4.7 mmol/L (3.5-5.0)
[2019-01-27] MEDS ORDERED: Digoxin TAB* 0.25 MG PO SCH (17:00)
[2019-01-27] MEDS ORDERED: Warfarin TAB(*) 2 MG PO ONE (17:00)
[2019-01-27] MEDS ORDERED: Digoxin IV* 0.5 MG/2 ML AMP (0.25 MG/ML) IV SLOW PU ONE (17:07)
[2019-01-27] MEDS: Calcium Carbonate CHEW TAB* 500 MG (TUMS) PO PRN (19:36)
[2019-01-27] MEDS: Mirtazapine TAB* 15 MG PO SCH (20:25)
[2019-01-27] MEDS: HYDROcodone/ACETAMIN 5-325 MG* 1 TAB PO PRN (20:25)
--- NOTE | 2019-01-27 22:14 | PN ---
PROGRESS NOTE: DATE OF SERVICE:01/27/2019 HISTORY: The patient feels that his breathing has improved. He continues to cough up clear mucus with some yellow mucus. He has been up walking around. He is anxious to go home. He has remained in atrial fibrillation. I stopped his Tikosyn last night. He wants to know why that is. He thinks his rash is doing somewhat better. He does complain of some shortness of breath with exertion. PHYSICAL EXAMINATION: Vital Signs: Blood pressure is 116/73, pulse 99, respirations 20, temperature afebrile, O2 sat 95%. The patient is sitting up in bed, no acute distress. Seen without family present. Skin shows erythematous rash on the trunk and thighs. Chest shows diminished breath sounds at the bases. Heart irregularly irregular. Abdomen is soft and nontender. No masses or organomegaly. Bowel sounds are active. Extremities show trace to 1+ edema. LABORATORY DATA: Sodium 140, potassium 4.7, chloride 102, CO2 of 34, BUN and creatinine 13/0.65, glucose 82, calcium 9.4. INR 3.17. Urine culture from 12/06 grew out 10,000 to 25,000 colony count of Enterococcus faecalis. IMPRESSION AND PLAN: 1. Pneumonia with sputum positive for Haemophilus influenzae, improving on current regimen. 2. Rash secondary to ceftriaxone, improving. 3. Anticoagulation for aortic valve. INR in the therapeutic range. We will continue warfarin. 4. Atrial fibrillation with borderline uncontrolled ventricular response. We will ask Cardiology to see again. Discussed that Tikosyn was not working to control his atrial fibrillation and so that is why it is being discontinued. 5. Positive urine culture for Enterococcus. We will discuss further with Dr. Leslie. [id number]/[facility] #: [id number] [facility]
[2019-01-28] MEDS: Aztreonam (*) 1 GM in NS 0.9% 50 ML* 50 ML IVPB SCH ×2 (04:13→12:41)
[2019-01-28 06:22] LABS: Hematocrit 32 % (42-52); Hemoglobin 10.8 g/dL (14.0-18.0); Mean Corpuscular HGB Conc 34 g/dL (31-36); Mean Corpuscular Hemoglobin 33 pg (27-31); Mean Corpuscular Volume 96 fL (80-94); Mean Platelet Volume 8.9 fL (7.4-10.4); Platelet Count 232 10^3/uL (150-450); Red Blood Count 3.33 10^6 /uL (4.18-5.48); Red Cell Distribution Width 15 % (10-15); White Blood Count 7.5 10^3/uL (3.5-10.8)
[2019-01-28 06:28] LABS: INR 2.92 (0.82-1.09)
[2019-01-28 06:35] LABS: C Reactive Protein 44.12 mg/L (<8.01)
[2019-01-28 06:37] LABS: Digoxin 0.8 ng/ml (0.8-2.0)
[2019-01-28 06:48] LABS: ABS Basophils 0.1 10^3/ul (0-0.2); ABS Eosinophils 0.5 10^3/ul (0-0.6); ABS Monocytes 1.5 10^3/ul (0-0.8); ABS Neutrophils 2.5 10^3/ul (1.5-7.7); Eosinophil % 6.7 %; Lymphocyte % 39.8 %; Nucleated Red Blood Cells % 0.1
[2019-01-28 06:53] LABS: Polychromasia 1+; Schistocytes 1+
[2019-01-28] MEDS: Magnesium Oxide TAB* 400 MG PO SCH (10:00)
[2019-01-28] MEDS: Pantoprazole TAB * 40 MG TAB PO SCH (10:00)
[2019-01-28] MEDS: Metoprolol Succinate XL TAB* 50 MG PO SCH (10:00)
[2019-01-28] MEDS: Potassium Chlor TAB* 20 MEQ TAB.ER PO SCH (10:00)
[2019-01-28] MEDS: Furosemide TAB* 20 MG PO SCH (10:00)
[2019-01-28] MEDS: Vitamin THERAPEUTIC TAB PO SCH (10:00)
[2019-01-28 11:13] VITALS: BP 116/69
[2019-01-28 13:48] LABS: Corrected Retic Count 0.8 % (0.5-1.5); Hematocrit for Retic CNT 32 % (42-52); Immature Retic Fraction 0.49; RBC Retic Count 3.32 10^6/uL (4.18-5.48)
--- NOTE | 2019-01-28 15:33 | DS ---
CC: Dr. Tsai; Dr. Cortez DISCHARGE SUMMARY: DATE OF ADMISSION: DATE OF DISCHARGE: DISCHARGE DIAGNOSES: 1. Haemophilus influenzae pneumonia. 2. Atrial fibrillation with uncontrolled ventricular response. 3. History of coronary artery disease. 4. History of endocarditis. 5. Status post aortic valve replacement. 6. Colonization of urine with Enterococcus faecalis. 7. Allergic reaction to CEFTRIAXONE. 8. History of prostate cancer status post radiation with seeds. 8. History of asthma. 9. History of hypertension. 10. History of depression. 11. History of congestive heart failure. 12. History of urethral stricture. 13. Anemia of chronic disease and acute illness. HISTORY: Olvin Santos is a 78-year-old man admitted with pneumonia. Please see the dictated admission note for details of the present illness, past medical history, family history, social and personal history, review of systems , and physical examination. DIAGNOSTIC STUDIES/LAB DATA: CBC: On admission; WBC 9.3, H and H 11.9/34, MCV 96, PLT 153,000. WBC went up to 11.4 on 01/25/19, was 7.5 on 01/28/19. H and H at the time of discharge was 10.8/32. INR started at 5.95, was down to 2.92 at the time of discharge with a target INR of 2.5 to 3.5. Chemistries: On admission, sodium 137, potassium 4.3, chloride 101, CO2 28, BUN/creatinine 23/ 0.72, glucose 110, calcium 9.6, magnesium 1.8. CRP 235.14. Chem profile was otherwise within normal limits. For calcitonin, it was normal at less than 0.10. TSH was normal at 0.64. BNP was 1084 on 01/22/19 went down to 616 on 11/05 and was 683 on 01/26/19 and 645 on 01/28/19. Lactic acid was normal at 1.6. CRP came down to 44.12 on 01/28/19. Urinalysis, yellow cloudy, specific gravity 1.016, on 01/22/19, 2+ blood, 3+ wbc's, 3+ rbc's. On 01/25/19, yellow, specific gravity 1.008. Dipsticks positive for blood 2+, rbc's 1+. Digitoxin level on 01/28/19 was 0.8. Imaging: Chest x-ray on 01/22/19 showed mixed radiographic pattern with both concern for bipolar and vascular congestion and inflammatory effort in the right to mid to lower lung zone. Chest x-ray on 01/26/19 showed no significant change. Chronic pleural changes, chronic interstitial disease. Electrocardiogram on 01/22/19 showed normal sinus rhythm, subsequently the patient's all telemetry showed atrial fibrillation with controlled to uncontrolled ventricular response. CONSULTATION: Infectious Disease, Dr. Leslie felt the patient had right middle lobe infiltrate with Haemophilus influenzae. [place] that he had an infiltrate seen on x-ray in July 2018 as well. Recommended the patient take azethreonam and azithromycin because of allergic reaction to ceftriaxone. He recommmeded followup imaging in 1 month. Cardiology consultation, Dr. Duke, then Dr. Sanderson saw him. Dr. Duke recommended discontinuation of Tikosyn due to its being ineffective and starting the patient on digoxin. Dr. Sanderson subsequently adjusted doses of digoxin and metoprolol. HOSPITAL COURSE: The patient was initially admitted and started on ceftriaxone and azithromycin. Sputum culture was obtained, grew out Haemophilus influenzae. He went from sinus rhythm to atrial fibrillation. His INR was supratherapeutic so his Coumadin was initially held. INR was followed and warfarin was restarted when INR came down. He was continued on his usual other medications. He clinically improved. His atrial fibrillation rate was controlled by increasing his metoprolol dose. Digoxin was added (see above). His sputum was white to light yellow. By the time of discharge, she denied shortness of breath, chest pain. [place] in [place] PT saw him and thought he was safe to walk either with a rolling walker or without a rolling walker. At the time of discharge, he is to follow up with Dr. Tsai and Dr. Cortez in 1 to 2 weeks. He should have repeat chest imaging in 1 month. He should have an INR checked on Thursday (today is Thursday). He has a machine at home. He should have a BNP and a digoxin level checked in a week. ACTIVITY: As tolerated. DIET: As usual. MEDICATIONS: As follows: 1. Metoprolol 50 mg twice a day. 2. Digoxin 0.25 mg daily. 3. Mirtazapine 50 mg. 4. Ambien 12.5 mg at bedtime. 5. [place] 5/325 one every 6 hours as needed for pain. 6. Warfarin 2 mg q. evening. 7. Fluticasone 1 spray both nostrils daily. 8. Magnesium oxide 500 mg twice a day. 9. Potassium chloride 20 mEq twice a day. 10. MultiVites 1 daily. 11. Omeprazole 40 mg daily. 12. Furosemide 20 mg daily. 13. Levofloxacin 500 mg daily for 2 more days. [id number]/[facility] #: [id number] [facility]
--- NOTE | 2019-02-03 20:33 | DS ---
DISCHARGE SUMMARY: DATE OF ADMISSION: 01/22/19 DATE OF DISCHARGE: 01/28/19 ADDENDUM: The patient is being discharged home in improved condition. [id number]/[facility] #: [id number]
== END 2019-01-28 13:20 | disposition home or self-care (01) | DRG 195 ==
LOC: ED 11:44 → MED 13:53
PROVIDERS: ADMIT Hospitalist; ATTEND Internal Medicine Geriatric Medicine
DX: J14 Pneumonia due to Hemophilus influenzae (principal); R21 Rash and other nonspecific skin eruption; I25.10 Atherosclerotic heart disease of native coronary artery without angina pectoris; F32.9 Major depressive disorder, single episode, unspecified; I11.0 Hypertensive heart disease with heart failure; J45.909 Unspecified asthma, uncomplicated; I48.0 Paroxysmal atrial fibrillation; K21.9 Gastro-esophageal reflux disease without esophagitis; I27.20 Pulmonary hypertension, unspecified; I34.0 Nonrheumatic mitral (valve) insufficiency; R19.7 Diarrhea, unspecified; R82.71 Bacteriuria; T36.1X5A Adverse effect of cephalosporins and other beta-lactam antibiotics, initial encounter; Y92.239 Unspecified place in hospital as the place of occurrence of the external cause; I50.9 Heart failure, unspecified; E78.5 Hyperlipidemia, unspecified; E78.00 Pure hypercholesterolemia, unspecified; N40.0 Benign prostatic hyperplasia without lower urinary tract symptoms; M15.0 Primary generalized (osteo)arthritis; G47.00 Insomnia, unspecified; D63.8 Anemia in other chronic diseases classified elsewhere; R79.1 Abnormal coagulation profile; Z79.01 Long term (current) use of anticoagulants; Z88.0 Allergy status to penicillin; Z95.2 Presence of prosthetic heart valve; Z87.440 Personal history of urinary (tract) infections; Z87.891 Personal history of nicotine dependence; Z87.442 Personal history of urinary calculi; Z83.3 Family history of diabetes mellitus; Z85.46 Personal history of malignant neoplasm of prostate; Z92.3 Personal history of irradiation; Z85.118 Personal history of other malignant neoplasm of bronchus and lung; Z98.41 Cataract extraction status, right eye; Z98.42 Cataract extraction status, left eye
CPT/HCPCS: 36415; 71045; 71046; 80048; 80053; 80162; 81003; 81015; 82550; 82553; 83605; 83735; 83880; 84100; 84145; 84443; 84484; 85025; 85027; 85045; 85060; 85610; 86140; 87040; 87070; 87077; 87086; 87186; 87205; 87899; 93005; 96374; 99284; A9270-GY; G8978-GP-CH; G8979-GP-CH; G8980-GP-CH; J0456; J0696; J1160; J1940; J3475; J3490

== ENCOUNTER 2019-08-31 16:04 | Inpatient (IN) ==
[2019-08-31] MEDS ORDERED: Tetan/Diph/Pertus SYR(Tdap)* 0.5 ML SYR(BOOSTRIX) use SYR contains LATEX IM ONE (16:32)
[2019-08-31] MEDS ORDERED: Ondansetron 4 mg VIAL 2 MG/ML 2 ml VIAL IV ONE (16:39)
[2019-08-31] MEDS ORDERED: Morphine 4 MG/ML VIAL (1 ml) IV ONE ×3 (16:39→18:08)
[2019-08-31] MEDS ORDERED: HYDROmorphone 1 MG/1 ML SYRINGE IV ONE (19:13)
[2019-08-31] MEDS ORDERED: Albuterol 2.5mg/3 ml (0.083%) NEB.SOLN INH PRN (20:27)
[2019-08-31] MEDS ORDERED: Levalbuterol 0.63MG/3ML NEB UNIT OF USE INH PRN (20:32)
[2019-08-31] MEDS: oxyCODONE/Acetamin 5/325 mg TAB PO PRN (21:22)
[2019-08-31] MEDS ORDERED: Mometasone 220 MCG MDI INH SCH (22:00)
[2019-08-31] MEDS: Potassium Chlor 20 meq TAB.ER PO SCH (23:15)
[2019-08-31] MEDS: HYDROmorphone 0.5 MG/0.5 ML SYRINGE IV SLOW PU PRN (23:16)
[2019-08-31 23:56] LABS: Hematocrit 31 % (42-52); Mean Corpuscular HGB Conc 32 g/dL (31-36); Mean Corpuscular Hemoglobin 29 pg (27-31); Mean Corpuscular Volume 91 fL (80-94); Platelet Count 127 10^3/uL (150-450); Red Blood Count 3.45 10^6 /uL (4.18-5.48); Red Cell Distribution Width 16 % (10-15); White Blood Count 8.9 10^3/uL (3.5-10.8)
[2019-09-01 00:04] LABS: INR 4.36 (0.82-1.09)
[2019-09-01 00:34] LABS: Digoxin 1.2 ng/ml (0.8-2.0)
[2019-09-01 00:36] LABS: Calcium 9.2 mg/dL (8.6-10.3); Potassium 4.4 mmol/L (3.5-5.0)
[2019-09-01 00:40] LABS: ABS Lymphocytes 1.2 10^3/ul (1.0-4.8); ABS Monocytes 1.1 10^3/ul (0-0.8); Lymphocyte % 12.9 %; Nucleated Red Blood Cells % 0.1
[2019-09-01 00:42] LABS: BUN/Creatinine Ratio 33.8 (8-20); EGFR African American 124.1 (>60); EGFR Non-African American 102.6 (>60)
[2019-09-01] MEDS: oxyCODONE/Acetamin 5/325 mg TAB PO PRN ×5 (01:36→23:34)
[2019-09-01] MEDS: HYDROmorphone 0.5 MG/0.5 ML SYRINGE IV SLOW PU PRN ×4 (05:55→20:57)
[2019-09-01 06:06] LABS: ABS Lymphocytes 1.7 10^3/ul (1.0-4.8); ABS Monocytes 1.3 10^3/ul (0-0.8); Hematocrit 28 % (42-52); Lymphocyte % 23.3 %; Mean Corpuscular HGB Conc 32 g/dL (31-36); Mean Corpuscular Hemoglobin 29 pg (27-31); Mean Corpuscular Volume 89 fL (80-94); Platelet Count 152 10^3/uL (150-450); Red Blood Count 3.15 10^6 /uL (4.18-5.48); Red Cell Distribution Width 17 % (10-15); White Blood Count 7.4 10^3/uL (3.5-10.8)
[2019-09-01 06:13] LABS: INR 4.85 (0.82-1.09)
[2019-09-01 06:21] LABS: BUN/Creatinine Ratio 35.1 (8-20); Calcium 8.9 mg/dL (8.6-10.3); EGFR African American 118.5 (>60); Potassium 4.7 mmol/L (3.5-5.0)
[2019-09-01] MEDS: Fluticasone NASAL SPRAY 50MCG 16 gm SPRAY BTL BOTH NARES SCH (09:04)
[2019-09-01] MEDS: Potassium Chlor 20 meq TAB.ER PO SCH ×2 (09:04→20:56)
[2019-09-01] MEDS: Mometasone 220 MCG MDI INH SCH (11:40)
[2019-09-02] MEDS: HYDROmorphone 0.5 MG/0.5 ML SYRINGE IV SLOW PU PRN ×3 (06:07→21:29)
[2019-09-02 06:11] LABS: Hematocrit 23 % (42-52); Hemoglobin 7.6 g/dL (14.0-18.0); Mean Corpuscular HGB Conc 33 g/dL (31-36); Mean Corpuscular Hemoglobin 29 pg (27-31); Mean Corpuscular Volume 88 fL (80-94); Mean Platelet Volume 8.6 fL (7.4-10.4); Platelet Count 128 10^3/uL (150-450); Red Cell Distribution Width 16 % (10-15); White Blood Count 6.9 10^3/uL (3.5-10.8)
[2019-09-02 06:49] LABS: INR 4.97 (0.82-1.09)
[2019-09-02] MEDS: oxyCODONE/Acetamin 5/325 mg TAB PO PRN ×3 (08:11→17:59)
[2019-09-02] MEDS: Mometasone 220 MCG MDI INH SCH (08:13)
[2019-09-02 09:36] LABS: ABS Lymphocytes 1.6 10^3/ul (1.0-4.8); ABS Monocytes 1.6 10^3/ul (0-0.8); Eosinophil % 0.3 %; Lymphocyte % 23.1 %
[2019-09-02] MEDS: Potassium Chlor 20 meq TAB.ER PO SCH ×2 (10:21→20:54)
[2019-09-02] MEDS: Fluticasone NASAL SPRAY 50MCG 16 gm SPRAY BTL BOTH NARES SCH (10:32)
[2019-09-02] MEDS ORDERED: Glycerin ADULT 2.4 gm SUPP PR ONE (15:00)
[2019-09-02] MEDS ORDERED: Phytonadione Oral Solution 5 MG/25 ML UDC PO ONE (19:30)
[2019-09-03] MEDS: oxyCODONE/Acetamin 5/325 mg TAB PO PRN ×5 (03:48→21:07)
[2019-09-03 05:15] LABS: Hematocrit 22 % (42-52); Hemoglobin 7.2 g/dL (14.0-18.0); Mean Corpuscular HGB Conc 33 g/dL (31-36); Mean Corpuscular Hemoglobin 29 pg (27-31); Mean Corpuscular Volume 88 fL (80-94); Mean Platelet Volume 8.9 fL (7.4-10.4); Platelet Count 127 10^3/uL (150-450); Red Blood Count 2.48 10^6 /uL (4.18-5.48); Red Cell Distribution Width 16 % (10-15); White Blood Count 6.7 10^3/uL (3.5-10.8)
[2019-09-03 05:17] LABS: ABS Lymphocytes 1.4 10^3/ul (1.0-4.8); ABS Monocytes 1.8 10^3/ul (0-0.8); Eosinophil % 0.2 %; Lymphocyte % 20.5 %; Nucleated Red Blood Cells % 0.1
[2019-09-03 05:18] LABS: INR 2.63 (0.82-1.09)
[2019-09-03 05:31] LABS: BUN/Creatinine Ratio 40.6 (8-20); Calcium 8.9 mg/dL (8.6-10.3); EGFR African American 134.5 (>60); EGFR Non-African American 111.2 (>60)
[2019-09-03] MEDS ORDERED: Heparin DRIP 25,000 UNITS BAG 25,000 UNITS/500 ML BAG IV SCH (07:00)
[2019-09-03] MEDS ORDERED: Heparin 5000 UNITS/ML 1 mL VIAL IV SCH ×2 (07:00→20:00)
[2019-09-03] MEDS: Mometasone 220 MCG MDI INH SCH (07:45)
[2019-09-03] MEDS: Potassium Chlor 20 meq TAB.ER PO SCH ×2 (08:02→21:00)
[2019-09-03] MEDS: Fluticasone NASAL SPRAY 50MCG 16 gm SPRAY BTL BOTH NARES SCH (08:03)
[2019-09-03 08:10] LABS: EGFR African American 130.2 (>60); EGFR Non-African American 107.6 (>60)
[2019-09-03] MEDS ORDERED: Glycerin ADULT 2.4 gm SUPP PR ONE (09:00)
[2019-09-03] MEDS ORDERED: NS 0.9% 500 ml BAG 500 ML IV ONE (09:01)
[2019-09-03 14:01] LABS: BUN/Creatinine Ratio 33.8 (8-20); EGFR African American 124.1 (>60); EGFR Non-African American 102.6 (>60); Potassium 4.8 mmol/L (3.5-5.0)
[2019-09-03 20:28] LABS: Hematocrit 22 % (42-52); Hemoglobin 7.3 g/dL (14.0-18.0)
[2019-09-03] MEDS: Heparin DRIP 25,000 UNITS BAG 25,000 UNITS/500 ML BAG IV SCH (20:38)
[2019-09-04] MEDS: oxyCODONE/Acetamin 5/325 mg TAB PO PRN ×2 (03:53→07:54)
[2019-09-04 06:22] LABS: INR 1.55 (0.82-1.09)
[2019-09-04] MEDS: Heparin DRIP 25,000 UNITS BAG 25,000 UNITS/500 ML BAG IV SCH ×2 (06:24→23:33)
[2019-09-04] MEDS: Potassium Chlor 20 meq TAB.ER PO SCH ×2 (07:53→21:04)
[2019-09-04] MEDS: Fluticasone NASAL SPRAY 50MCG 16 gm SPRAY BTL BOTH NARES SCH (07:54)
[2019-09-04] MEDS: Mometasone 220 MCG MDI INH SCH (07:55)
[2019-09-04 10:56] LABS: ABS Lymphocytes 1.2 10^3/ul (1.0-4.8); ABS Monocytes 1.4 10^3/ul (0-0.8); Eosinophil % 0.7 %; Hematocrit 22 % (42-52); Hemoglobin 7.3 g/dL (14.0-18.0); Lymphocyte % 18.1 %; Mean Corpuscular HGB Conc 34 g/dL (31-36); Mean Corpuscular Hemoglobin 29 pg (27-31); Mean Corpuscular Volume 87 fL (80-94); Mean Platelet Volume 8.3 fL (7.4-10.4); Nucleated Red Blood Cells % 0.1; Platelet Count 141 10^3/uL (150-450); Red Blood Count 2.49 10^6 /uL (4.18-5.48); Red Cell Distribution Width 16 % (10-15); White Blood Count 6.4 10^3/uL (3.5-10.8)
[2019-09-04 11:11] LABS: BUN/Creatinine Ratio 32.9 (8-20); EGFR African American 126.1 (>60); EGFR Non-African American 104.2 (>60); Potassium 4.6 mmol/L (3.5-5.0)
[2019-09-04] MEDS: HYDROcodone/ACETAMIN 5/325 mg TAB PO PRN ×2 (16:21→21:05)
[2019-09-05 05:59] LABS: Hematocrit 21 % (42-52); Hemoglobin 7.3 g/dL (14.0-18.0); Mean Corpuscular HGB Conc 34 g/dL (31-36); Mean Corpuscular Hemoglobin 29 pg (27-31); Mean Corpuscular Volume 86 fL (80-94); Mean Platelet Volume 8.7 fL (7.4-10.4); Platelet Count 131 10^3/uL (150-450); Red Blood Count 2.48 10^6 /uL (4.18-5.48); Red Cell Distribution Width 16 % (10-15); White Blood Count 5.5 10^3/uL (3.5-10.8)
[2019-09-05] MEDS ORDERED: Lactated Ringers 1000 ml BAG 1,000 ML IV SCH (06:00)
[2019-09-05 06:04] LABS: INR 1.46 (0.82-1.09)
[2019-09-05 06:18] LABS: BUN/Creatinine Ratio 32.1 (8-20); Calcium 8.3 mg/dL (8.6-10.3); EGFR African American 171.2 (>60); EGFR Non-African American 141.5 (>60); Potassium 4.5 mmol/L (3.5-5.0)
[2019-09-05] MEDS: Potassium Chlor 20 meq TAB.ER PO SCH ×2 (08:04→21:05)
[2019-09-05] MEDS: HYDROmorphone 0.5 MG/0.5 ML SYRINGE IV SLOW PU PRN ×2 (08:04→18:18)
[2019-09-05] MEDS ORDERED: NS 0.9% 500 ml BAG 500 ML IV ONE (08:14)
[2019-09-05] MEDS: Mometasone 220 MCG MDI INH SCH (09:26)
[2019-09-05] MEDS: Fluticasone NASAL SPRAY 50MCG 16 gm SPRAY BTL BOTH NARES SCH (10:23)
[2019-09-05 11:50] LABS: Hematocrit 23 % (42-52); Hemoglobin 7.7 g/dL (14.0-18.0)
[2019-09-05] MEDS ORDERED: Vancomycin 1,000 MG VIAL ONE (12:05)
[2019-09-05] MEDS ORDERED: Bupivacaine 0.5% SDV PF 30ML VIAL ONE (12:06)
[2019-09-05 13:36] LABS: Hematocrit 24 % (42-52); Hemoglobin 8.3 g/dL (14.0-18.0)
[2019-09-05 13:52] LABS: Activated Partial Thrombo Time 28.6 seconds (26.0-38.0); INR 1.43 (0.82-1.09)
[2019-09-05 14:01] LABS: BUN/Creatinine Ratio 32.8 (8-20); Calcium 8.6 mg/dL (8.6-10.3); EGFR African American 164.4 (>60); EGFR Non-African American 135.9 (>60); Potassium 4.9 mmol/L (3.5-5.0); Total Bilirubin 1.1 mg/dL (0.2-1.0)
[2019-09-05] MEDS ORDERED: Heparin 5000 UNITS/ML 1 mL VIAL IV SCH (16:00)
[2019-09-05] MEDS: HYDROcodone/ACETAMIN 5/325 mg TAB PO PRN ×2 (16:38→21:05)
[2019-09-05 16:49] LABS: EGFR African American 158.1 (>60); EGFR Non-African American 130.6 (>60)
[2019-09-05 16:58] LABS: ABS Basophils 0.1 10^3/ul (0-0.2); ABS Lymphocytes 1.4 10^3/ul (1.0-4.8); ABS Monocytes 1.4 10^3/ul (0-0.8); Eosinophil % 0.3 %; Hematocrit 25 % (42-52); Hemoglobin 8.2 g/dL (14.0-18.0); Mean Corpuscular HGB Conc 33 g/dL (31-36); Mean Corpuscular Hemoglobin 29 pg (27-31); Mean Corpuscular Volume 87 fL (80-94); Mean Platelet Volume 9.7 fL (7.4-10.4); Nucleated Red Blood Cells % 0.1; Platelet Count 127 10^3/uL (150-450); Red Blood Count 2.82 10^6 /uL (4.18-5.48); Red Cell Distribution Width 16 % (10-15); White Blood Count 6.3 10^3/uL (3.5-10.8)
[2019-09-06] MEDS: HYDROcodone/ACETAMIN 5/325 mg TAB PO PRN ×5 (03:55→21:17)
[2019-09-06 05:50] LABS: ABS Monocytes 1.3 10^3/ul (0-0.8); Eosinophil % 0.3 %; Hematocrit 23 % (42-52); Lymphocyte % 17.5 %; Mean Corpuscular HGB Conc 35 g/dL (31-36); Mean Corpuscular Hemoglobin 30 pg (27-31); Mean Corpuscular Volume 86 fL (80-94); Mean Platelet Volume 8.8 fL (7.4-10.4); Nucleated Red Blood Cells % 0.1; Platelet Count 129 10^3/uL (150-450); Red Cell Distribution Width 16 % (10-15); White Blood Count 5.7 10^3/uL (3.5-10.8)
[2019-09-06 07:45] LABS: Calcium 8.3 mg/dL (8.6-10.3); Potassium 4.8 mmol/L (3.5-5.0)
[2019-09-06 07:51] LABS: BUN/Creatinine Ratio 32.8 (8-20); EGFR African American 155.1 (>60); EGFR Non-African American 128.2 (>60)
[2019-09-06] MEDS: Potassium Chlor 20 meq TAB.ER PO SCH ×2 (08:03→21:13)
[2019-09-06] MEDS: Fluticasone NASAL SPRAY 50MCG 16 gm SPRAY BTL BOTH NARES SCH (08:04)
[2019-09-06] MEDS: Mometasone 220 MCG MDI INH SCH (08:04)
[2019-09-06] MEDS: Heparin DRIP 25,000 UNITS BAG 25,000 UNITS/500 ML BAG IV SCH ×2 (08:17→22:12)
[2019-09-06 14:15] LABS: TSH (Thyroid Stimulating Horm) 0.93 mcIU/mL (0.34-5.60)
[2019-09-06] MEDS ORDERED: Furosemide 40 mg/4 ml IV VIAL IV ONE (15:20)
[2019-09-06 20:03] LABS: INR 1.81 (0.82-1.09)
[2019-09-06] MEDS: Levalbuterol 0.63MG/3ML NEB UNIT OF USE INH SCH (20:17)
[2019-09-07 05:47] LABS: ABS Eosinophils 0.1 10^3/ul (0-0.6); ABS Lymphocytes 1.3 10^3/ul (1.0-4.8); Eosinophil % 1.7 %; Hematocrit 22 % (42-52); Hemoglobin 7.4 g/dL (14.0-18.0); Lymphocyte % 28.3 %; Mean Corpuscular HGB Conc 34 g/dL (31-36); Mean Corpuscular Hemoglobin 30 pg (27-31); Mean Corpuscular Volume 86 fL (80-94); Mean Platelet Volume 8.8 fL (7.4-10.4); Nucleated Red Blood Cells % 0.2; Platelet Count 138 10^3/uL (150-450); Red Blood Count 2.49 10^6 /uL (4.18-5.48); Red Cell Distribution Width 16 % (10-15); White Blood Count 4.6 10^3/uL (3.5-10.8)
[2019-09-07 05:57] LABS: Activated Partial Thrombo Time 65.2 seconds (26.0-38.0); INR 1.74 (0.82-1.09)
[2019-09-07 06:12] LABS: BUN/Creatinine Ratio 33.3 (8-20); Calcium 8.5 mg/dL (8.6-10.3); EGFR African American 178.5 (>60); EGFR Non-African American 147.5 (>60); Potassium 4.2 mmol/L (3.5-5.0)
[2019-09-07] MEDS ORDERED: Furosemide 20 mg/2 ml IV VIAL IV ONE (07:36)
[2019-09-07] MEDS: Levalbuterol 0.63MG/3ML NEB UNIT OF USE INH SCH (08:12)
[2019-09-07] MEDS: HYDROcodone/ACETAMIN 5/325 mg TAB PO PRN ×4 (08:24→22:37)
[2019-09-07] MEDS ORDERED: Furosemide 40 mg/4 ml IV VIAL IV SCH (09:00)
[2019-09-07] MEDS: Potassium Chlor 20 meq TAB.ER PO SCH ×2 (09:38→20:44)
[2019-09-07] MEDS: Fluticasone NASAL SPRAY 50MCG 16 gm SPRAY BTL BOTH NARES SCH (09:43)
[2019-09-07] MEDS: Mometasone 220 MCG MDI INH SCH (09:43)
[2019-09-07] MEDS: Heparin DRIP 25,000 UNITS BAG 25,000 UNITS/500 ML BAG IV SCH (13:00)
[2019-09-07] MEDS ORDERED: Furosemide 20 mg/2 ml IV VIAL IV SLOW PU ONE (15:00)
[2019-09-07] MEDS: Enoxaparin 100 MG/ML SYR SUBCUT SCH (16:33)
[2019-09-07] MEDS: Levalbuterol 1.25MG/0.5ML NEB.SOL INH PRN (17:09)
[2019-09-08] MEDS: Enoxaparin 100 MG/ML SYR SUBCUT SCH ×2 (04:55→17:05)
[2019-09-08] MEDS: HYDROcodone/ACETAMIN 5/325 mg TAB PO PRN ×6 (05:00→23:43)
[2019-09-08 05:45] LABS: Hematocrit 26 % (42-52); Hemoglobin 8.6 g/dL (14.0-18.0); Mean Corpuscular HGB Conc 34 g/dL (31-36); Mean Corpuscular Hemoglobin 29 pg (27-31); Mean Corpuscular Volume 86 fL (80-94); Mean Platelet Volume 9.3 fL (7.4-10.4); Platelet Count 168 10^3/uL (150-450); Red Blood Count 2.96 10^6 /uL (4.18-5.48); Red Cell Distribution Width 17 % (10-15); White Blood Count 4.8 10^3/uL (3.5-10.8)
[2019-09-08 05:55] LABS: Activated Partial Thrombo Time 28.2 seconds (26.0-38.0); INR 1.66 (0.82-1.09)
[2019-09-08 06:17] LABS: ABS Eosinophils 0.1 10^3/ul (0-0.6); ABS Lymphocytes 1.1 10^3/ul (1.0-4.8); ABS Monocytes 1.1 10^3/ul (0-0.8); Eosinophil % 1.5 %; Lymphocyte % 23.3 %; Nucleated Red Blood Cells % 0.1; Polychromasia 1+; Tear Drop Cells 1+
[2019-09-08] MEDS: Potassium Chlor 20 meq TAB.ER PO SCH ×2 (08:42→20:57)
[2019-09-08] MEDS: Fluticasone NASAL SPRAY 50MCG 16 gm SPRAY BTL BOTH NARES SCH (08:43)
[2019-09-08] MEDS: Mometasone 220 MCG MDI INH SCH (08:43)
[2019-09-08] MEDS: Levalbuterol 1.25MG/0.5ML NEB.SOL INH PRN (10:02)
[2019-09-08] MEDS: Iron Sucrose 200 MG in NS 0.9% 100 ml BAG 100 ML IVPB SCH (10:40)
[2019-09-08] MEDS: Analgesic BALM 114 GM TOPICAL PRN (10:57)
[2019-09-09] MEDS: Enoxaparin 100 MG/ML SYR SUBCUT SCH (05:01)
[2019-09-09 07:07] LABS: ABS Eosinophils 0.1 10^3/ul (0-0.6); ABS Lymphocytes 1.3 10^3/ul (1.0-4.8); ABS Monocytes 0.9 10^3/ul (0-0.8); Eosinophil % 2.3 %; Hematocrit 25 % (42-52); Hemoglobin 8.5 g/dL (14.0-18.0); Lymphocyte % 32.1 %; Mean Corpuscular HGB Conc 34 g/dL (31-36); Mean Corpuscular Hemoglobin 29 pg (27-31); Mean Corpuscular Volume 86 fL (80-94); Mean Platelet Volume 9.2 fL (7.4-10.4); Nucleated Red Blood Cells % 0.1; Platelet Count 188 10^3/uL (150-450); Red Cell Distribution Width 17 % (10-15)
[2019-09-09 07:14] LABS: INR 2.02 (0.82-1.09)
[2019-09-09 07:39] VITALS: BP 122/55
[2019-09-09] MEDS: Potassium Chlor 20 meq TAB.ER PO SCH (08:37)
[2019-09-09] MEDS: Fluticasone NASAL SPRAY 50MCG 16 gm SPRAY BTL BOTH NARES SCH (08:37)
[2019-09-09] MEDS: Mometasone 220 MCG MDI INH SCH (08:40)
[2019-09-09] MEDS: Iron Sucrose 200 MG in NS 0.9% 100 ml BAG 100 ML IVPB SCH (08:41)
[2019-09-09] MEDS: Analgesic BALM 114 GM TOPICAL PRN (08:45)
== END 2019-09-09 11:46 | disposition home health service (06) | DRG 563 ==
LOC: SSU 16:04 → ED 16:04 → SSU 22:21
PROVIDERS: ADMIT Nurse Practitioner; ATTEND Internal Medicine